=== PATIENT | female | born 1970 | race Caucasian/White ===

== ENCOUNTER 2017-06-02 23:02 | Emergency (ER) | payer BC, MEDICAID ==
[2017-06-02] MEDS ORDERED: diphenhydrAMINE HCL 50 MG/ML VIAL IV ONE (23:18)
[2017-06-02] MEDS ORDERED: METHYLPREDNISOLONE SOD SUCC/PF 40 MG/ML VIAL IV ONE (23:19)
--- NOTE | 2017-06-02 23:28 | ERNOTE ---
Allergy Symptoms - ER Date of Service: 06/02/17 Time Seen by Provider: 06/02/17 23:16 Source: patient Exam Limitations: no limitations Immunizations: IMMUNIZATION HX Immunizations Up to Date Yes History of Influenza Vaccine Yes Hx Pneumococcal Vaccination Yes Allergies/Adverse Reactions: Allergies codeine Allergy (Severe, Verified 06/02/17 23:10) Anaphylaxis doxycycline Allergy (Severe, Verified 06/02/17 23:10) Anaphylaxis meperidine HCl [From Demerol] Allergy (Severe, Verified 06/02/17 23:10) Swelling of Tongue strawberry [[place]] Allergy (Severe, Verified 06/02/17 23:10) Anaphylaxis sulfamethoxazole [From Bactrim] Allergy (Severe, Verified 06/02/17 23:10) Anaphylaxis trimethoprim [From Bactrim] Allergy (Severe, Verified 06/02/17 23:10) Anaphylaxis chili pepper Allergy (Uncoded 06/02/17 23:10) Home Medications: HOME MEDICATIONS Clonazepam 1 mg PO BID 10/29/13 [Last Taken 12/09/13 20:00] Topiramate [Topamax] 50 mg PO DAILY 10/29/13 [Last Taken 10/14/14] Venlafaxine HCl [Effexor Xr] 50 mg PO DAILY 01/02/14 [Last Taken 10/14/14] Lisinopril 5 mg PO DAILY 10/15/14 [Last Taken Unknown] Gabapentin 100 mg PO TID #60 capsule 10/17/14 [Last Taken Unknown] Cyclobenzaprine HCl [Flexeril] 10 mg PO HS PRN #15 tablet 12/27/14 [Last Taken Unknown] HYDROcodone/ACETAMINOPHEN [[place] 5-325] 1 each PO Q4H PRN #16 tablet 12/27/14 [ Last Taken Unknown] Naproxen [Naprosyn] 500 mg PO BID #20 tablet 12/27/14 [Last Taken Unknown] diphenhydrAMINE HCL [Benadryl] 25 mg PO Q6H #30 cap 06/03/17 [Last Taken Unknown ] - History of Present Illness Narrative: This is a 47-year-old female who is allergic to peppers she incidentally had some dip earlier on today that had peppers in it. Now the patient states she is itching all over she has no respiratory problems stridor or however she feels itchy on the anterior chest area and arms. Review of Systems - Review of Systems Constitutional: Present: other - feels itchiness all over EYE: Present: no symptoms reported ENT: Present: no symptoms reported Respiratory: Present: no symptoms reported Cardiology: Present: no symptoms reported Gastrointestinal/Abdominal: Present: no symptoms reported Genitourinary: Present: no symptoms reported Musculoskeletal: Present: no symptoms reported Skin: Present: no symptoms reported - Patient's Past Medical History Patient History - Medical: No pertinent hx Patient History - Cardiac/Respiratory: No pertinent hx Patient History - Cancer: No Hx of Cancer Patient History - Surgical Procedures: Appendectomy, Cholecystectomy, Orthopedic LMP (females 10-50): 5 years ago - Social History Living Situations: home Psych History: Hx of Anxiety, Hx of Depression, Hx of Bipolar Disorder, Current tx/ever been on anti-depressants or anti-anxiety meds Smoking Status: Never smoker Alcohol Use: none Drug Use: none - Immunizations Immunizations Up to Date: Yes Hx Pneumococcal Vaccination: Yes History of Influenza Vaccine: Yes Physical Exam - Physical Exam General Appearance: Present: wd/wn, alert, no apparent distress Head Exam: Present: normal inspection, no evidence of injury Eye Exam: Normal inspection: bilateral, PERRL: bilateral, EOMI: bilateral Ears, Nose, Throat: Present: normal ENT inspection, normal pharynx - patient has an excellent airway appears to be no swelling in the posterior pharynx Neck: Present: normal inspection, nontender Respiratory: Present: no respiratory distress, normal breath sounds, no accessory muscle use, chest nontender, lungs clear Cardiovascular/Chest: Present: regular rate, rhythm, no murmur, normal peripheral pulses Gastrointestinal/Abdominal: Present: normal bowel sounds, nontender, nondistended, soft, no organomegaly Back Exam: Present: normal inspection, normal range of motion, no vertebral tenderness Neurological Exam: Present: alert, oriented, normal mood/affect, no motor/ sensory deficits Skin Exam: Present: normal color, other - he should is actively scratching the anterior chest skin area she denies any shortness of breath and I don't see any welts or hives on her body. ED Progress - Vital Signs Patient's Vital Signs:: I have reviewed the patient's vital signs. Vital Signs: Vital Signs 06/02/17 23:05 Temperature 36.1 C L Pulse Rate 87 Respiratory 18 Rate Blood Pressure 132/83 O2 Sat by Pulse 100 Oximetry - Progress/Reassessment Chief Complaint: Allergic Reaction Plan - Plan Plan: Patient is an acute histaminic states at this time we have given him benadryl 25 mg IV and Solu-Medrol 125 mg IV I have suggested that she not scratch her skin at all she was given an ice pack to freeze areas that are itching. Patient did feel better after the Solu-Medrol. Departure Clinical Impression: Allergic reaction Qualifiers: Encounter type: initial encounter Qualified Code(s): T78.40XA - Allergy, unspecified, initial encounter - Departure Disposition: Home self-care Condition: Good Instructions: Food Allergy Prescriptions: diphenhydrAMINE HCL [Benadryl] 25 mg PO Q6H #30 cap
[2017-06-02] MEDS ORDERED: METHYLPREDNISOLONE SOD SUCC/PF 125 MG/2 ML VIAL ONE (23:37)
[2017-06-02] MEDS ORDERED: diphenhydrAMINE HCL 50 MG/ML VIAL ONE (23:37)
[2017-06-03 00:24] VITALS: BP 123/84
== END 2017-06-03 00:24 | disposition home or self-care (01) ==
LOC: ER 23:02
DX: T78.40XA Allergy, unspecified, initial encounter (principal)